=== PATIENT | female | born 1960 | race Caucasian/White ===

== ENCOUNTER 2019-10-09 17:33 | Inpatient (IN) | payer MEDICARE, OTHER ==
[~2019-10-09] VITALS: Ht 175.3 cm; Wt 64.0 kg
[2019-10-09 16:30] VITALS: BP 149/93
--- NOTE | 2019-10-09 17:53 | NUR ---
PT IS IN ROOM #1B. DR PERRY EVALUATED THE PT.
[2019-10-09] MEDS ORDERED: ATOR40TA PO (18:05)
[2019-10-09] MEDS ORDERED: VENL225T PO (18:05)
[2019-10-09] MEDS ORDERED: FLUN25SP NS (18:05)
[2019-10-09] MEDS ORDERED: [UNRECOGNIZED DRUG - CODE] PO (18:05)
[2019-10-09] MEDS ORDERED: NAPR-1009 PO (18:05)
[2019-10-09] MEDS ORDERED: CLON1TAB12 PO (18:05)
[2019-10-09] MEDS ORDERED: POTA10CA43 PO (18:05)
[2019-10-09] MEDS ORDERED: TOPI100T38 PO (18:05)
[2019-10-09] MEDS ORDERED: SERT100T12 PO (18:05)
[2019-10-09] MEDS ORDERED: HYDR50TA3 PO (18:05)
--- NOTE | 2019-10-09 18:30 | NUR ---
Gps/Expediter Service Order- Received report from ER ,Tim RN. Admitted from ER via wheel chair, upon face to face, patient flat, evasive, when asked if she still wants to hurt self, hesitant to answer , but claimed "no" . . Patient is alert, oriented x3 Claimed she does not have any salesperson florist supplies, stated" i dont have anybody.Oriented to unit settings,
--- NOTE | 2019-10-09 18:32 | NUR ---
REPORT WAS GIVEN TO MHU RN. PT WAS TRANSFERED TO [facility] ROOM #145B.
[2019-10-09] MEDS ORDERED: MAG HYDROX/AL HYDROX/SIMETH 30 ML LIQUID UDC PO PRN (20:45)
[2019-10-09] MEDS: LORAZEPAM 1 MG TABLET PO PRN (21:35)
--- NOTE | 2019-10-09 22:44 | NUR ---
Admission Note: 59 yr old female brought to MHU from ER via wheel chair via staff. Pt admitted on a 5150 for Danger to Self under the care of Dr. Correa and Dr. Blanc. VS stable, no c/o pain. According to the hold, patient is homeless and has been living in her car for the last three months. Patient stated that she does not have a family member or friend to contact. Upon admission pt is A/O X 3 name, place and situation. Staff conducted a physical assessment, patient observed to cooperate with admission process, patient. Patient denied Suicidal ideation at time of admission and was able to contract for safety. Patient Rights handbook and Advisement given to Pt, rights Pt will need unit orientation as well as reinforcement due to confusion. Q 15 minute rounds initiated for safety. Addendum: 10/09/19 at 2257 by TRIPP SPICER RN Admission Note: (cont.) Patient placed on a 5150 for Danger to self after she approached someone and stated she was feeling suicidal and had taken twenty-five klonopin tablets.
[2019-10-09] MEDS: TEMAZEPAM 7.5 MG CAPSULE PO PRN (23:22)
[2019-10-10 02:45] VITALS: BP 132/76
[2019-10-10 07:30] VITALS: BP 125/83
[2019-10-10] MEDS: LORAZEPAM 1 MG TABLET PO PRN ×3 (08:47→21:22)
[2019-10-10] MEDS: ACETAMINOPHEN 325 MG TABLET PO PRN (08:47)
[2019-10-10] MEDS: TOPIRAMATE 100 MG TABLET PO SCH ×4 (09:27→20:33)
[2019-10-10] MEDS: POTASSIUM CHLORIDE 10 MEQ TAB.PRT.SR PO SCH ×2 (09:27→17:07)
[2019-10-10] MEDS: HYDROCHLOROTHIAZIDE 25 MG TABLET PO SCH (09:28)
--- NOTE | 2019-10-10 10:27 | NUR ---
Social Work Family Contact: Patient does not have any family members at the moment.
--- NOTE | 2019-10-10 10:27 | NUR ---
Social Work Initial Discharge Plan: Patient is currently homeless and does not have any supportive contact. Per patient, she would want this insurance underwriter sales to find her a SNF. This insurance underwriter sales will work with the MD and treatment team to coordinate proper discharge plan for patient.
--- NOTE | 2019-10-10 10:30 | NUR ---
Social Work Firearms Report: Outside Plant Technician completed and submitted a [employer] firearms report for 5150 grave disability certification. A copy of report has been placed in patient chart.
[2019-10-10] MEDS: NAPROXEN 500 MG TABLET PO PRN (12:47)
[2019-10-10 14:01] LABS: BASOPHILS # (AUTO) 0.1 K/uL (0.0-8.0); BASOPHILS % (AUTO) 1.1 % (0.0-2.0); EOSINOPHILS # (AUTO) 0.2 K/uL (0.0-0.7); EOSINOPHILS % (AUTO) 2.6 % (0.0-7.0); HEMOGLOBIN 12.5 g/dL (10.9-14.3); LYMPHOCYTES # (AUTO) 1.2 K/uL (20.0-40.0); LYMPHOCYTES % (AUTO) 19.9 % (20.5-51.5); MEAN CORPUSCULAR HEMOGLOBIN 29.1 uug (24.7-32.8); MEAN CORPUSCULAR HGB CONC 32 g/dL (32.3-35.6); MEAN CORPUSCULAR VOLUME 90.9 fL (75.5-95.3); MONOCYTES # (AUTO) 0.4 K/uL (2.0-10.0); MONOCYTES % (AUTO) 5.9 % (0.0-11.0); NEUTROPHILS # (AUTO) 4.4 K/uL (1.8-8.9); NEUTROPHILS % (AUTO) 70.5 % (38.5-71.5); PLATELET COUNT (AUTO) 218 K/uL (179-408); RED BLOOD CELL COUNT(AUTO) 4.29 MIL/uL (3.63-4.92); WHITE BLOOD COUNT (AUTO) 6.3 K/uL (3.8-11.8)
[2019-10-10 14:26] LABS: THYROID STIMULATING HORMONE 1.144 mIU/mL (0.358-3.740)
[2019-10-10 14:50] LABS: MAGNESIUM 2.1 mg/dL (1.8-2.4); PHOSPHOROUS 4.1 mg/dL (2.5-4.9)
[2019-10-10 14:53] LABS: BILIRUBIN,TOTAL 0.2 mg/dL (0.2-1.0); CREATININE 1.4 mg/dL (0.6-1.3); POTASSIUM 3.4 mmol/L (3.5-5.1); TOTAL PROTEIN, SERUM 6.8 g/dL (6.4-8.2)
[2019-10-10 16:00] VITALS: BP 134/86
--- NOTE | 2019-10-10 17:28 | NUR ---
Gps/Citrix Consultant- Noted patient smiling, interacting with her roommate, making needs known to staff. encouraged to attend her group therapy. Adequate relief from her generalized body discomfort.
[2019-10-10 20:00] VITALS: BP 147/83
[2019-10-10] MEDS: ATORVASTATIN 40 MG TABLET PO SCH (20:33)
[2019-10-10] MEDS: TRAZODONE 50 MG TABLET PO SCH (22:00)
[2019-10-11] MEDS: TEMAZEPAM 7.5 MG CAPSULE PO PRN ×3 (01:05→22:11)
[2019-10-11 07:30] VITALS: BP 106/76
[2019-10-11] MEDS: POTASSIUM CHLORIDE 10 MEQ TAB.PRT.SR PO SCH ×2 (08:37→16:25)
[2019-10-11] MEDS: HYDROCHLOROTHIAZIDE 25 MG TABLET PO SCH (08:38)
[2019-10-11] MEDS: TOPIRAMATE 100 MG TABLET PO SCH ×4 (08:38→20:58)
[2019-10-11] MEDS: LORAZEPAM 1 MG TABLET PO PRN ×2 (08:50→13:15)
[2019-10-11] MEDS: NAPROXEN 500 MG TABLET PO PRN (13:16)
[2019-10-11] MEDS: VENLAFAXINE XR 75 MG TAB.ER.24H PO SCH (14:07)
[2019-10-11 16:00] VITALS: BP 116/70
[2019-10-11] MEDS: NICOTINE 21 MG/24HR PATCH TD SCH (16:25)
[2019-10-11] MEDS: TRAZODONE 50 MG TABLET PO SCH (20:58)
[2019-10-11] MEDS: ATORVASTATIN 40 MG TABLET PO SCH (20:58)
[2019-10-11] MEDS ORDERED: TRAZODONE 100 MG TABLET PO SCH (21:00)
[2019-10-11 21:40] VITALS: BP 118/68
--- NOTE | 2019-10-12 03:04 | NUR ---
RECEIVED PATIENT IN BED. ADMITTED TO BEING DEPRESSED BUT SAID "AM NOT GOING TO DO ANYTHING TO MYSELF" CONTRACTED FOR SAFETY. COOPERATIVE WITH STAFF FOR HER CARE AND MEDICATIONS.VISUAL CHECKS MADE ON HER FOR SAFETY.WILL CONTINUE TO MONITOR.
--- NOTE | 2019-10-12 06:49 | NUR ---
SLEPT FOR 8HOURS.
[2019-10-12 07:30] VITALS: BP 116/70
[2019-10-12] MEDS: POTASSIUM CHLORIDE 10 MEQ TAB.PRT.SR PO SCH ×2 (08:24→17:03)
[2019-10-12] MEDS: VENLAFAXINE XR 75 MG TAB.ER.24H PO SCH (08:24)
[2019-10-12] MEDS: TOPIRAMATE 100 MG TABLET PO SCH ×4 (08:25→20:17)
[2019-10-12] MEDS: NICOTINE 21 MG/24HR PATCH TD SCH (08:25)
[2019-10-12] MEDS: HYDROCHLOROTHIAZIDE 25 MG TABLET PO SCH (08:26)
[2019-10-12] MEDS: LORAZEPAM 1 MG TABLET PO PRN ×2 (09:04→18:13)
--- NOTE | 2019-10-12 13:45 | NUR ---
Gps?rug designer- Patient requesting to be DNR , informed needed to talk to Medical Doctor ,also neded to talk to her Fast Food Fry Cook re- advanced directives discuss her plans, as well as her Psychiatrist, Patient wants to know results of her GFR( was 39 on 10/10/19) patient she does not want to be on dialysis.
[2019-10-12 16:00] VITALS: BP 113/76
[2019-10-12 20:00] VITALS: BP 141/84
[2019-10-12] MEDS: ATORVASTATIN 40 MG TABLET PO SCH (20:17)
[2019-10-12] MEDS: TRAZODONE 50 MG TABLET PO SCH (20:17)
[2019-10-12] MEDS ORDERED: NICOTINE 21 MG/24HR PATCH TD SCH (20:30)
[2019-10-12] MEDS: NAPROXEN 500 MG TABLET PO PRN (21:09)
[2019-10-12] MEDS: TEMAZEPAM 7.5 MG CAPSULE PO PRN (21:52)
--- NOTE | 2019-10-13 02:19 | NUR ---
RECEIVED PATIENT IN BED.LATER WOKE UP CRYING AND SAYING "THERE ARE SO MANY THINGS HAPPENING IN MY HEAD.AM DEALING WITH SOME CHILDHOOD TRAUMATIC EVENTS AND NEED SOME PSYCHOLOGICAL COUNSELLING".NO OFFENSE BUT WHAT YOU GUYS ARE DOING HERE WILL NOT CUT IT.SPENT SOME TIME WITH HER AND TOLD HER LIFE WAS WORTH LIVING.SHE AGREED AND CONTRACTED FOR SAFETY. COOPERATIVE WITH STAFF FOR HER CARE AND MEDICATIONS.VISUAL CHECKS MADE ON HER FOR SAFETY.WILL CONTINUE TO MONITOR.
--- NOTE | 2019-10-13 06:38 | NUR ---
SLEPT FOR 7 HOURS. SAID SHE FEELS MUCH BETTER.
[2019-10-13 07:30] VITALS: BP 113/65
--- NOTE | 2019-10-13 07:30 | NUR ---
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
[2019-10-13] MEDS: VENLAFAXINE XR 75 MG TAB.ER.24H PO SCH (08:22)
[2019-10-13] MEDS: TOPIRAMATE 100 MG TABLET PO SCH ×4 (08:22→20:46)
[2019-10-13] MEDS: POTASSIUM CHLORIDE 10 MEQ TAB.PRT.SR PO SCH ×2 (08:22→16:13)
[2019-10-13] MEDS: NICOTINE 21 MG/24HR PATCH TD SCH (08:23)
[2019-10-13] MEDS: LORAZEPAM 1 MG TABLET PO PRN ×2 (09:00→15:32)
[2019-10-13] MEDS: HYDROCHLOROTHIAZIDE 25 MG TABLET PO SCH (09:21)
[2019-10-13 16:00] VITALS: BP 130/81
[2019-10-13] MEDS: TRAZODONE 50 MG TABLET PO SCH (20:47)
[2019-10-13 20:48] VITALS: BP 136/88
[2019-10-13] MEDS: ATORVASTATIN 40 MG TABLET PO SCH (20:48)
[2019-10-13] MEDS: TEMAZEPAM 7.5 MG CAPSULE PO PRN (21:13)
--- NOTE | 2019-10-14 03:40 | NUR ---
RECEIVED PATIENT IN BED. ADMITTED TO TO BEING MILDLY DEPRESSED BUT SAID "AM GETTING BETTER EACH DAY".SHE CONTRACTED FOR SAFETY. COOPERATIVE WITH STAFF FOR HER CARE AND MEDICATIONS.VISUAL CHECKS MADE ON HER FOR SAFETY.WILL CONTINUE TO MONITOR.
--- NOTE | 2019-10-14 06:56 | NUR ---
SLEPT FOR 3HOURS. PACING UP AND DOWN THE HALLWAY EARLY THIS MORNING.
[2019-10-14] MEDS: LORAZEPAM 1 MG TABLET PO PRN ×2 (07:15→12:31)
[2019-10-14 07:30] VITALS: BP 124/55
[2019-10-14 07:48] LABS: BASOPHILS # (AUTO) 0.1 K/uL (0.0-8.0); BASOPHILS % (AUTO) 0.9 % (0.0-2.0); EOSINOPHILS # (AUTO) 0.2 K/uL (0.0-0.7); EOSINOPHILS % (AUTO) 2.8 % (0.0-7.0); HEMATOCRIT 42.9 % (31.2-41.9); LYMPHOCYTES # (AUTO) 1.7 K/uL (20.0-40.0); LYMPHOCYTES % (AUTO) 24.3 % (20.5-51.5); MEAN CORPUSCULAR HGB CONC 33 g/dL (32.3-35.6); MEAN CORPUSCULAR VOLUME 89.3 fL (75.5-95.3); MONOCYTES # (AUTO) 0.5 K/uL (2.0-10.0); NEUTROPHILS # (AUTO) 4.6 K/uL (1.8-8.9); PLATELET COUNT (AUTO) 261 K/uL (179-408); RED BLOOD CELL COUNT(AUTO) 4.81 MIL/uL (3.63-4.92); WHITE BLOOD COUNT (AUTO) 7.1 K/uL (3.8-11.8)
[2019-10-14] MEDS: VENLAFAXINE XR 75 MG TAB.ER.24H PO SCH (08:01)
[2019-10-14] MEDS: TOPIRAMATE 100 MG TABLET PO SCH ×4 (08:01→20:16)
[2019-10-14 08:10] LABS: BILIRUBIN,TOTAL 0.3 mg/dL (0.2-1.0); CREATININE 1.6 mg/dL (0.6-1.3); PHOSPHOROUS 4.4 mg/dL (2.5-4.9); POTASSIUM 4.4 mmol/L (3.5-5.1)
--- NOTE | 2019-10-14 08:41 | NUR ---
KEV Coordination of Care: SW faxed pt's referral packet for review and possible placement to [facility] ([phone] [phone]) attention to [facility]. Patient is accepted for placement.
[2019-10-14] MEDS: MAGNESIUM HYDROXIDE 30 ML LIQUID UDC PO PRN (08:56)
[2019-10-14] MEDS ORDERED: NICOTINE 14 MG/24HR PATCH TD SCH (09:00)
[2019-10-14] MEDS: HYDROCHLOROTHIAZIDE 25 MG TABLET PO SCH (09:00)
[2019-10-14] MEDS: NAPROXEN 500 MG TABLET PO PRN (12:28)
--- NOTE | 2019-10-14 14:29 | NUR ---
GPS: upon getting report from the previous shift patient start shouting and agitated at the nurse station, asking for snack , patient has blood works to be done, called the labs immediately and prn medication was given, patient calm down after medication given, patient argumentative but after awhile starts to clam ,patient exhibit moods swings,however denies of any SI and HI at this time MD made aware , will continue monitor
[2019-10-14] MEDS ORDERED: NICOTINE 21 MG/24HR PATCH TD ONE (14:45)
[2019-10-14 15:26] VITALS: BP 135/65
--- NOTE | 2019-10-14 18:09 | NUR ---
patient been calm this afternoon, ate 100% of her dinner, patient been cooperative, needy no distres at this time
[2019-10-14 20:07] VITALS: BP 119/62
[2019-10-14] MEDS: TRAZODONE 50 MG TABLET PO SCH (20:15)
[2019-10-14] MEDS: ACETAMINOPHEN 325 MG TABLET PO PRN (20:16)
[2019-10-14] MEDS: ATORVASTATIN 10 MG TABLET PO SCH (20:16)
[2019-10-14] MEDS: TRAZODONE 100 MG TABLET PO SCH (21:14)
[2019-10-14] MEDS: risperiDONE 0.5 MG TABLET PO SCH (21:16)
[2019-10-15] MEDS: LORAZEPAM 1 MG TABLET PO PRN (02:39)
--- NOTE | 2019-10-15 05:59 | NUR ---
GPS: Received pt in bed, a/ox3, depress and gamez with report of pt mood swing during day shift. Pt was noted having crying spells on and off. Pt c/o headache and prn Tylenol 650mg given per request, report effect. Sunny Lopez was making rounds and Trazodone was increased [id number] at night and Risrdial order started. No side effect noted, and pt requested Ativan at 0239. No aggression or excessive behavior. Continue monitor and anticipate needs. Urine sample was ordered and collected.
[2019-10-15 06:45] LABS: *BILIRUBIN,URIN NEGATIVE (NEGATIVE); *BLOOD, URINE NEGATIVE (NEGATIVE); *CLARITY,URINE CLEAR (CLEAR); *COLOR,URINE YELLOW (YELLOW); *KETONES,URINE NEGATIVE (NEGATIVE); *UROBILINOGEN,URINE 0.2 E.U./dl (NORMAL); LEUKOCYTE ESTERASE ,URINE NEGATIVE (NEGATIVE); NITRITE, URINE NEGATIVE (NEGATIVE); PH,URINE 6.5 (5.0-8.0); UGLUCOSE NEGATIVE (NEGATIVE)
[2019-10-15 07:09] LABS: *CREATININE,URINE 22.1 mg/dL (30-125); *URINE TOTAL PROTEIN RANDOM < 6.0 mg/dL (<150/24HR)
[2019-10-15 07:30] VITALS: BP 99/59
[2019-10-15 07:46] LABS: BASOPHILS # (AUTO) 0.1 K/uL (0.0-8.0); EOSINOPHILS # (AUTO) 0.2 K/uL (0.0-0.7); EOSINOPHILS % (AUTO) 3.5 % (0.0-7.0); HEMATOCRIT 34.9 % (31.2-41.9); HEMOGLOBIN 11.6 g/dL (10.9-14.3); LYMPHOCYTES # (AUTO) 1.5 K/uL (20.0-40.0); LYMPHOCYTES % (AUTO) 30.5 % (20.5-51.5); MEAN CORPUSCULAR HEMOGLOBIN 29.4 uug (24.7-32.8); MEAN CORPUSCULAR HGB CONC 33 g/dL (32.3-35.6); MEAN CORPUSCULAR VOLUME 88.4 fL (75.5-95.3); MONOCYTES # (AUTO) 0.4 K/uL (2.0-10.0); MONOCYTES % (AUTO) 7.4 % (0.0-11.0); NEUTROPHILS # (AUTO) 2.9 K/uL (1.8-8.9); NEUTROPHILS % (AUTO) 57.6 % (38.5-71.5); PLATELET COUNT (AUTO) 195 K/uL (179-408); RED BLOOD CELL COUNT(AUTO) 3.95 MIL/uL (3.63-4.92)
[2019-10-15 08:12] LABS: BILIRUBIN,TOTAL 0.4 mg/dL (0.2-1.0); CREATININE 1.5 mg/dL (0.6-1.3); MAGNESIUM 2.2 mg/dL (1.8-2.4); PHOSPHOROUS 3.9 mg/dL (2.5-4.9); TOTAL PROTEIN, SERUM 6.6 g/dL (6.4-8.2)
[2019-10-15] MEDS: VENLAFAXINE XR 75 MG TAB.ER.24H PO SCH (09:41)
[2019-10-15] MEDS: NICOTINE 21 MG/24HR PATCH TD SCH (09:42)
[2019-10-15] MEDS: TOPIRAMATE 100 MG TABLET PO SCH ×4 (09:42→20:29)
[2019-10-15] MEDS: DIVALPROEX 250 MG TABLET.DR PO SCH ×3 (09:42→17:54)
[2019-10-15] MEDS: risperiDONE 0.5 MG TABLET PO SCH ×2 (09:42→20:29)
[2019-10-15] MEDS: ACETAMINOPHEN 325 MG TABLET PO PRN (09:55)
[2019-10-15 16:00] VITALS: BP 103/58
[2019-10-15 20:09] VITALS: BP 108/54
[2019-10-15] MEDS: TRAZODONE 100 MG TABLET PO SCH (20:28)
[2019-10-15] MEDS: ATORVASTATIN 10 MG TABLET PO SCH (20:29)
[2019-10-16 07:30] VITALS: BP 111/61
[2019-10-16] MEDS: VENLAFAXINE XR 75 MG TAB.ER.24H PO SCH (08:39)
[2019-10-16] MEDS: NICOTINE 21 MG/24HR PATCH TD SCH (08:40)
[2019-10-16] MEDS: DIVALPROEX 250 MG TABLET.DR PO SCH ×3 (08:40→17:10)
[2019-10-16] MEDS: risperiDONE 0.5 MG TABLET PO SCH ×2 (08:40→20:07)
[2019-10-16] MEDS: TOPIRAMATE 100 MG TABLET PO SCH ×4 (08:40→20:07)
[2019-10-16 16:00] VITALS: BP 113/59
[2019-10-16] MEDS: LORAZEPAM 1 MG TABLET PO PRN (16:08)
--- NOTE | 2019-10-16 16:24 | NUR ---
Gps/Barn Hand- Patient requesting to talk to Psychiatrist today, informed Dr Correa will be in tonight and he will be in to see her.Encouraged to continue to verbalized her feelings and needs. Per patient she is ready to be discharged, when asked if still feeling depressed, claimed she still is but she'll be just fine. Attended her group therapy, likes to draw and make colors/arts.
[2019-10-16 16:47] LABS: ALPHA-1-GLOBULIN 0.2 g/dL (0.0-0.4); ALPHA-2-GLOBULIN 0.6 g/dL (0.4-1.0); GAMMA GLOBULIN 1.1 g/dL (0.4-1.8); GLOBULIN, TOTAL 2.9 g/dL (2.2-3.9); M-SPIKE Not Observed g/dL (Not Observed)
[2019-10-16 20:00] VITALS: BP 120/62
[2019-10-16] MEDS: ATORVASTATIN 10 MG TABLET PO SCH (20:07)
[2019-10-16] MEDS: TRAZODONE 100 MG TABLET PO SCH (20:07)
[2019-10-17] MEDS: TEMAZEPAM 7.5 MG CAPSULE PO PRN (01:36)
--- NOTE | 2019-10-17 05:52 | NUR ---
Received patient awake alert and oriented x3. Patient is medication compliant and was up during the middle of the night requesting a sleeping pill. No behavioral issues noted. Patient seemed calm and cooperative. Slept 6.45 hours and is asleep at this time. Monitoring for safety and behavior escalation d/t history of being labile. No issues during the night.
[2019-10-17 07:30] VITALS: BP 119/64
[2019-10-17] MEDS: VENLAFAXINE XR 75 MG TAB.ER.24H PO SCH (09:07)
[2019-10-17] MEDS: DIVALPROEX 250 MG TABLET.DR PO SCH ×3 (09:07→18:18)
[2019-10-17] MEDS: NICOTINE 21 MG/24HR PATCH TD SCH (09:07)
[2019-10-17] MEDS: risperiDONE 0.5 MG TABLET PO SCH ×2 (09:07→20:54)
[2019-10-17] MEDS: TOPIRAMATE 100 MG TABLET PO SCH ×4 (09:08→20:54)
[2019-10-17] MEDS: MAGNESIUM HYDROXIDE 30 ML LIQUID UDC PO PRN (11:00)
[2019-10-17] MEDS: LORAZEPAM 1 MG TABLET PO PRN (11:00)
[2019-10-17 16:00] VITALS: BP 97/58
[2019-10-17 20:37] VITALS: BP 113/64
[2019-10-17] MEDS: TRAZODONE 100 MG TABLET PO SCH (20:54)
[2019-10-17] MEDS ORDERED: ATORVASTATIN 10 MG TABLET ONE (21:43)
[2019-10-17] MEDS: ATORVASTATIN 10 MG TABLET PO SCH (22:10)
--- NOTE | 2019-10-17 22:14 | NUR ---
GPS/NSG Patient first observed awake in room, fair appearance, Flat affect as well as low mood were observed however patient chacho suicidal ideation or intent. Patient compliant with HS medication. Continue to monitor to provide a safe environment.
[2019-10-18 07:30] VITALS: BP 101/63
[2019-10-18] MEDS: TOPIRAMATE 100 MG TABLET PO SCH ×4 (08:53→20:16)
[2019-10-18] MEDS: VENLAFAXINE XR 75 MG TAB.ER.24H PO SCH (08:53)
[2019-10-18] MEDS: DIVALPROEX 250 MG TABLET.DR PO SCH ×3 (08:53→17:00)
[2019-10-18] MEDS: NICOTINE 21 MG/24HR PATCH TD SCH (08:53)
[2019-10-18] MEDS: risperiDONE 0.5 MG TABLET PO SCH ×2 (08:54→20:08)
[2019-10-18] MEDS: LORAZEPAM 1 MG TABLET PO PRN ×2 (13:31→20:07)
[2019-10-18 16:00] VITALS: BP 129/69
[2019-10-18] MEDS: TRAZODONE 100 MG TABLET PO SCH (20:08)
[2019-10-18] MEDS: ATORVASTATIN 10 MG TABLET PO SCH (20:08)
[2019-10-18 20:33] VITALS: BP 111/59
[2019-10-19] MEDS: TEMAZEPAM 7.5 MG CAPSULE PO PRN ×2 (01:54→23:51)
--- NOTE | 2019-10-19 06:23 | NUR ---
Received Pt in the hallway complaining about her roommate and arguing with her. Pt was redirected and calmed, emotional support provided. Pt is withdrawn, isolative, and seclusive to her room, only out for needs. Appears depressed, but states she's "feeling fine." Pt awoke anxious and restless at about 0200, Restoril 7.5mg administered with good effect. Denies SI/HI, verbally contracts for safety. Pt is guarded and gives minimal disclosure, appears to be thought blocking. VS stable, denies pain.
[2019-10-19 08:07] VITALS: BP 118/74
[2019-10-19] MEDS: DIVALPROEX 250 MG TABLET.DR PO SCH ×3 (08:38→16:55)
[2019-10-19] MEDS: TOPIRAMATE 100 MG TABLET PO SCH ×4 (08:38→20:20)
[2019-10-19] MEDS: VENLAFAXINE XR 75 MG TAB.ER.24H PO SCH (08:38)
[2019-10-19] MEDS: NICOTINE 21 MG/24HR PATCH TD SCH (08:38)
[2019-10-19] MEDS: risperiDONE 0.5 MG TABLET PO SCH ×2 (08:38→20:20)
[2019-10-19] MEDS: LORAZEPAM 1 MG TABLET PO PRN (14:34)
[2019-10-19 15:40] VITALS: BP 117/68
[2019-10-19 20:08] VITALS: BP 116/70
[2019-10-19] MEDS: TRAZODONE 100 MG TABLET PO SCH (20:19)
[2019-10-19] MEDS: ATORVASTATIN 10 MG TABLET PO SCH (20:20)
[2019-10-20] MEDS: MAGNESIUM HYDROXIDE 30 ML LIQUID UDC PO PRN (06:07)
--- NOTE | 2019-10-20 06:40 | NUR ---
PT SLEPT 7 HOURS. PT IN NO ACUTE DISTRESS.PT COMPLIANT WITH CARE. PT GIVEN SLEEPING MEDICATION PER PT REQUEST.PRESCRIBED MEDICATION GIVEN AND PT TOLERATED IT WELL. PT GIVEN MILK OF MAGNESIA PER PT REQUEST. PT STATING SHE FEEL CONSTIPATED. SAFETY AND COMFORT PROVIDED. ALL NEEDS ARE MET. WILL ENDORSE TO INCOMING NURSE FOR CONTINUITY OF CARE.
[2019-10-20 07:30] VITALS: BP 129/75
[2019-10-20] MEDS: TOPIRAMATE 100 MG TABLET PO SCH ×4 (08:41→20:56)
[2019-10-20] MEDS: risperiDONE 0.5 MG TABLET PO SCH ×2 (08:41→20:55)
[2019-10-20] MEDS: VENLAFAXINE XR 75 MG TAB.ER.24H PO SCH (08:41)
[2019-10-20] MEDS: ACETAMINOPHEN 325 MG TABLET PO PRN (08:41)
[2019-10-20] MEDS: DIVALPROEX 250 MG TABLET.DR PO SCH ×3 (08:41→16:08)
[2019-10-20] MEDS: NICOTINE 21 MG/24HR PATCH TD SCH (08:42)
[2019-10-20] MEDS: LORAZEPAM 1 MG TABLET PO PRN ×2 (13:57→19:30)
[2019-10-20 16:00] VITALS: BP 120/67
[2019-10-20 20:00] VITALS: BP 130/81
[2019-10-20] MEDS: ATORVASTATIN 10 MG TABLET PO SCH (20:55)
[2019-10-20] MEDS: TRAZODONE 100 MG TABLET PO SCH (20:55)
--- NOTE | 2019-10-21 04:23 | NUR ---
RECEIVED PATIENT IN HER ROOM.PLEASANT UPON APPROACH. DENIES SI/HI.COMPLIANT WITH MEDICATIONS AND CARE BUT WORRIED IF THE MEDICATIONS WILL MAKE HER "FAT". EXPLAINED THAT IT WILL NOT. VISUAL CHECKS MADE ON HER. WILL CONTINUE TO MONITOR.
--- NOTE | 2019-10-21 06:57 | NUR ---
SHE SLEPT FOR 6:00 HOURS.
[2019-10-21] MEDS: VENLAFAXINE XR 75 MG TAB.ER.24H PO SCH (08:30)
[2019-10-21] MEDS: DIVALPROEX 250 MG TABLET.DR PO SCH ×3 (08:30→16:51)
[2019-10-21] MEDS: NICOTINE 21 MG/24HR PATCH TD SCH (08:30)
[2019-10-21] MEDS: TOPIRAMATE 100 MG TABLET PO SCH ×4 (08:30→21:17)
[2019-10-21] MEDS: risperiDONE 0.5 MG TABLET PO SCH ×2 (08:30→21:17)
[2019-10-21 08:43] VITALS: BP 108/69
[2019-10-21] MEDS: LORAZEPAM 1 MG TABLET PO PRN ×2 (10:51→20:02)
[2019-10-21] MEDS: MAGNESIUM HYDROXIDE 30 ML LIQUID UDC PO PRN (14:39)
[2019-10-21 15:42] VITALS: BP 117/84
[2019-10-21 20:08] VITALS: BP 130/84
[2019-10-21] MEDS: TRAZODONE 100 MG TABLET PO SCH (21:17)
[2019-10-21] MEDS: ATORVASTATIN 10 MG TABLET PO SCH (21:17)
--- NOTE | 2019-10-22 06:39 | NUR ---
Slept 9.0 hrs. Pt requested ativan last night. She said she takes it for vertigo. Compliant with routine medications.
[2019-10-22 07:30] VITALS: BP 107/62
[2019-10-22] MEDS: DIVALPROEX 250 MG TABLET.DR PO SCH ×3 (08:55→17:29)
[2019-10-22] MEDS: VENLAFAXINE XR 75 MG TAB.ER.24H PO SCH (08:55)
[2019-10-22] MEDS: risperiDONE 0.5 MG TABLET PO SCH ×2 (08:55→21:21)
[2019-10-22] MEDS: TOPIRAMATE 100 MG TABLET PO SCH ×4 (08:55→21:24)
[2019-10-22] MEDS: NICOTINE 21 MG/24HR PATCH TD SCH (08:56)
[2019-10-22] MEDS: LORAZEPAM 1 MG TABLET PO PRN ×2 (14:56→20:30)
[2019-10-22] MEDS: MAGNESIUM HYDROXIDE 30 ML LIQUID UDC PO PRN (14:59)
[2019-10-22 16:00] VITALS: BP 109/61
[2019-10-22 20:02] VITALS: BP 114/61
[2019-10-22] MEDS: TRAZODONE 100 MG TABLET PO SCH (21:21)
[2019-10-22] MEDS: ATORVASTATIN 10 MG TABLET PO SCH (21:21)
--- NOTE | 2019-10-22 23:27 | NUR ---
Received patient in her room. Calm and cooperative. Able to make needs known. No SI. No behavioral issues. Compliant with medications. Safety measures maintained. Continue to monitor.
[2019-10-23] MEDS: LORAZEPAM 1 MG TABLET PO PRN (02:28)
[2019-10-23 07:30] VITALS: BP 102/70
[2019-10-23] MEDS: VENLAFAXINE XR 75 MG TAB.ER.24H PO SCH (08:46)
[2019-10-23] MEDS: risperiDONE 0.5 MG TABLET PO SCH (08:46)
[2019-10-23] MEDS: DIVALPROEX 250 MG TABLET.DR PO SCH ×2 (08:46→12:45)
[2019-10-23] MEDS: NICOTINE 21 MG/24HR PATCH TD SCH (08:47)
[2019-10-23] MEDS: TOPIRAMATE 100 MG TABLET PO SCH ×2 (08:49→12:45)
--- NOTE | 2019-10-23 09:49 | NUR ---
DISCHARGE NOTE: Pt will be discharged at 12:00pm via AM [facility] ([facility]) [address] [address] [place] [address] P: [phone]. Pt has no family to notify. Pts mood is labile with congruent affect. Pt denied visual/auditory hallucinations and denied suicidal/homicidal ideation. Pt is alert and oriented x4 and is appropriately groomed and dressed. Pt will be under the care of Psychiatrist: Dr. Juan Ramon Correa [address] [place] [address] and Internal Control Consultant: Dr. Mccall Address: [address] [place] [id number] . The multidisciplinary exit care form was done, printed, signed, and given to the patient.
--- NOTE | 2019-10-23 11:10 | NUR ---
Gps/Employment Law Attorney- Called [facility] , report given to Nurse Hernandez. Informed draft roller picker time at 1300 via ambulance. .
--- NOTE | 2019-10-23 13:30 | NUR ---
Gps/Field Service Supervisor- Discharged instructions reviewed, all belongings/valuables given back to patient ( i.e. cell Phone with fence installer foreman, meds., credit cars, $ 2.00) . Discharged via ambulance in good spirit with no complaints noted.
== END 2019-10-23 13:35 | DRG 885 ==
LOC: ER 17:37 → GPS 18:01
PROVIDERS: ADMIT Psychiatry & Neurology Psychiatry; ATTEND Internal Medicine
DX: F31.5 Bipolar disorder, current episode depressed, severe, with psychotic features (principal); E43 Unspecified severe protein-calorie malnutrition; N17.0 Acute kidney failure with tubular necrosis; N18.9 Chronic kidney disease, unspecified; R45.851 Suicidal ideations; T42.4X2D Poisoning by benzodiazepines, intentional self-harm, subsequent encounter; Z59.0 Homelessness; E87.6 Hypokalemia; F41.9 Anxiety disorder, unspecified; I12.9 Hypertensive chronic kidney disease with stage 1 through stage 4 chronic kidney disease, or unspecified chronic kidney disease; M19.90 Unspecified osteoarthritis, unspecified site; R62.7 Adult failure to thrive; Z87.891 Personal history of nicotine dependence; F15.10 Other stimulant abuse, uncomplicated; G89.29 Other chronic pain; E88.09 Other disorders of plasma-protein metabolism, not elsewhere classified; M62.50 Muscle wasting and atrophy, not elsewhere classified, unspecified site; Z68.20 Body mass index [BMI] 20.0-20.9, adult; F39 Unspecified mood [affective] disorder; Z91.5 Personal history of self-harm
CPT/HCPCS: 36415; 83735; 83970; 84100; 84155; 84156; 84165; 84300; 84443; 85025; A4663; J3490

== ENCOUNTER 2020-10-17 19:51 | Inpatient (IN) | payer MEDICARE, OTHER ==
[~2020-10-17] VITALS: Ht 175.3 cm; Wt 58.1 kg
[~2020-10-17 19:51] MED LIST: ATOR40TA PO; CLON1TAB12 PO; FLUN25SP NS; HYDR50TA4 PO; NAPR-1009 PO; POTA10CA43 PO; SERT100T12 PO; TOPI100T38 PO; VENL-192 PO
--- NOTE | 2020-10-17 20:12 | NUR ---
Pt BIB PVT ambulance from [facility] for medical clearance, on 5150 for danger to self for overdose on unknown amount of topamax and clonazepam. Admitting psych is Dr. Caruso. Pt admitted to with no plan. Provided pt with 1:1, security currently at bedside for direct observation with pt. Pt denies any pain/discomfort at this time. Clear speech, complete sentenes.
--- NOTE | 2020-10-17 20:15 | NUR ---
Dr. Jaime at bedside, MSE in progress.
[2020-10-17] MEDS ORDERED: ALBU2.5V13 NEB (20:23)
[2020-10-17] MEDS ORDERED: NICO-671 TP (20:23)
[2020-10-17] MEDS ORDERED: ALBUTEROL SULFATE 2.5 MG/ 0.5 ML NEBU NEB PRN (20:45)
--- NOTE | 2020-10-17 21:08 | NUR ---
GAVE REPORT TO EMANI MENDEZ.
--- NOTE | 2020-10-17 21:38 | NUR ---
Pt. admitted to MHU , under care of Dr. Caruso and Tigist Louise. Dx: psychosis, 5150 hold DTS. Belongs List completed Escorted by security to U.
[2020-10-17] MEDS ORDERED: MAGNESIUM HYDROXIDE 30 ML LIQUID UDC PO PRN (22:00)
[2020-10-17] MEDS ORDERED: MAG HYDROX/AL HYDROX/SIMETH 30 ML LIQUID UDC PO PRN (22:00)
[2020-10-17] MEDS: ACETAMINOPHEN 325 MG TABLET PO PRN (22:30)
[2020-10-17] MEDS: TOPIRAMATE 100 MG TABLET PO SCH (22:35)
[2020-10-17] MEDS: ATORVASTATIN 40 MG TABLET PO SCH (22:35)
[2020-10-17 22:47] VITALS: BP 111/46
--- NOTE | 2020-10-17 23:52 | NUR ---
ADMISSION NOTE: 60 YRS. OLD FEMALE WHO WAS TRANSFERRED FROM [facility] [place] AFTER MEDICAL CLEARED TO BE ADMITTED TO U @ [facility].PT WAS SEEN THEN CLEARED BY ER DOCTOR.PT ARRIVED TO THE UNIT BY WHEELCHAIR ACCOMPANIED BY ER STAFF AND A FIXED INCOME PORTFOLIO MANAGER.A/O X3,SL.ANXIOUS AND RESTLESS UPON ARRIVAL.PT STATED,"I DON'T KNOW WHY THEY SENT ME HERE BUT I'M SCARED". LATER ON SHE WAS ABLE TO CALM DOWN.PT IS ON 72 HR HOLD FOR DTS-PT REPORTED TAKING UNKNOWN AMOUNT OF TOPAMAX AND KLONOPIN IN S/A. PT HAS HX.OF SPINAL STENOSIS,METH ABUSE,BIPOLAR,MIGRAINE,PSEUDOSEIZURE AND CKD STAGE 2.SELF CARE ,BRP AND AMBULATORY,HX.OF MULTIPLE FALLS DUE TO DIZZINESS.DENIES SI/HI/A&V H.C/O DEPRESSED,HOPELESS AND HELPLESS BUT DIDN'T WANT TO TALK ABOUT @ THIS TIME.C/O LOWER BACK PAIN,MEDICATED WITH EFF.WILL CONTINUE TO MONITOR VERY CLOSELY FOR SI.
--- NOTE | 2020-10-18 06:46 | NUR ---
PT SLEPT FOR 4.30 HRS.NO C/O MADE.GOOD EFF.OF TYLENOL THAT WAS GIVEN LAST NIGHT. ENC.TO EXPRESS HER FEELING.IN NO ACUTE DISTRESS .WILL CONTINUE TO MONITOR.STAFF TRIED TO CALL MARIAJOSEPT'S SON,NO ONE LASTING MACHINE OPERATOR BED THE PHONE SO STAFF LEFT A MESSAGE ON HIS VOICEMAIL TO CALL BACK.
[2020-10-18 07:44] VITALS: BP 125/63
[2020-10-18] MEDS: NICOTINE 14 MG/24HR PATCH TD SCH (09:00)
[2020-10-18] MEDS: TOPIRAMATE 100 MG TABLET PO SCH ×5 (09:32→23:00)
--- NOTE | 2020-10-18 10:48 | NUR ---
Firearms Report: Weather Forcaster completed and submitted a DOJ firearms report for 5150 danger to self certifications. A copy of report has been placed in patient chart.
--- NOTE | 2020-10-18 11:28 | NUR ---
Brief Substance Abuse Intervention: Patient was provided with a brief substance abuse intervention for overdose and referred to [facility] ([phone]) [facility] ([phone]) [place] [facility] ([phone]) [facility] ([phone]) [facility] ([phone]) [facility] National Helpline ([phone]).
--- NOTE | 2020-10-18 11:56 | NUR ---
KEV Initial Discharge Plan: Patient is currently homeless. Patient requesting SNF placement. Patient has no family or friends for support. KEV will work with the MD and treatment team to coordinate proper discharge plan for patient.
--- NOTE | 2020-10-18 11:58 | NUR ---
Treatment Plan: Patient refused to sign the treatment plan form due to lethargic mood.
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
[2020-10-18] MEDS ORDERED: OLANZAPINE 10 MG VIAL IM ONE (14:00)
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
--- NOTE | 2020-10-18 14:41 | NUR ---
GPS: Nursing Notes: Reassessment of Chemical Restraint: Patient is awake and responding to her name, isolative and withdrawn in her room, believes that staff is passing Methamphetamines to the patients, believes that the staff is raping the next door patient, but patient is calmed, R=18, IM medication was effective, continue to monitor for safety, continue with treatment plan.
--- NOTE | 2020-10-18 15:41 | NUR ---
KEV Family Contact: SW spoke with patient's son Harjinder ([phone]) and discussed treatment and discharge plan. Harjinder states patient is homeless and will need SNF placement. Patient's son lives in [facility].
[2020-10-18 16:46] VITALS: BP 128/72
[2020-10-18 20:05] VITALS: BP 112/64
[2020-10-18] MEDS: risperiDONE 0.5 MG TABLET PO SCH ×2 (21:59→23:00)
[2020-10-18] MEDS: ATORVASTATIN 40 MG TABLET PO SCH ×2 (21:59→23:00)
[2020-10-18] MEDS: DIVALPROEX 250 MG TABLET.DR PO SCH ×2 (21:59→23:00)
--- NOTE | 2020-10-18 22:00 | NUR ---
received to care, asleep, in bed, but arousable, upon approach. bedtime medications were held, for now. will continue to monitor closely.
--- NOTE | 2020-10-18 23:00 | NUR ---
pt was awoken, and took her bedtime medications. she remains pleasant, calm, and cooperative.will continue to monitor closely.
--- NOTE | 2020-10-19 06:36 | NUR ---
slept well, 9.0 hours. appears to be awake. no distress noted.
[2020-10-19 08:00] VITALS: BP 107/58
[2020-10-19] MEDS: risperiDONE 0.5 MG TABLET PO SCH ×2 (08:24→20:15)
[2020-10-19] MEDS: TOPIRAMATE 100 MG TABLET PO SCH ×4 (08:24→20:15)
[2020-10-19] MEDS: DIVALPROEX 250 MG TABLET.DR PO SCH ×2 (08:24→20:15)
[2020-10-19] MEDS: VENLAFAXINE XR 75 MG TAB.ER.24H PO SCH (08:24)
[2020-10-19] MEDS: NICOTINE 14 MG/24HR PATCH TD SCH (08:24)
--- NOTE | 2020-10-19 13:29 | NUR ---
GPS: Nursing Notes: Mood Disturbance: Depression: Patient is awake and responding to her name, isolative, withdrawn in his room, refusing to participate in therapeutic groups, resistant with nursing care, refusing her Topamax at 13:00 hours, gets easily irritable when redirected, depressed mood and anxious affect, believes that the staff was raping the next door patient, suspicious, paranoid behavior, low energy level, unkempt appearance, unable to formulate a viable plan for self care, continue with treatment plan.
--- NOTE | 2020-10-19 14:13 | NUR ---
SW SNF Referral: KEV faxed patient's referral packet to [facility] (Fax: [phone]) attention to [facility] and patient is accepted for placement.
[2020-10-19 16:00] VITALS: BP 96/52
[2020-10-19] MEDS: ATORVASTATIN 40 MG TABLET PO SCH (20:15)
[2020-10-19 20:59] VITALS: BP 96/54
--- NOTE | 2020-10-19 22:00 | NUR ---
received to care, lying in bed, pleasant upon approach. compliant with medications, and staff direction. snack and fluids were given. as of 2200, she appears to be asleep. no distress noted. will continue to monitor closely.
--- NOTE | 2020-10-20 06:44 | NUR ---
slept 7.25 hours total. continues to sleep. no distress noted.
[2020-10-20 07:30] VITALS: BP 105/43
[2020-10-20] MEDS: risperiDONE 0.5 MG TABLET PO SCH ×3 (09:15→20:59)
[2020-10-20] MEDS: DIVALPROEX 250 MG TABLET.DR PO SCH ×2 (10:22→21:00)
[2020-10-20] MEDS: NICOTINE 14 MG/24HR PATCH TD SCH (10:22)
[2020-10-20] MEDS: VENLAFAXINE XR 75 MG TAB.ER.24H PO SCH (10:24)
[2020-10-20] MEDS: TOPIRAMATE 100 MG TABLET PO SCH ×4 (10:24→20:51)
[2020-10-20 16:00] VITALS: BP 97/45
[2020-10-20 19:45] VITALS: BP 99/65
[2020-10-20] MEDS: ACETAMINOPHEN 325 MG TABLET PO PRN (20:51)
[2020-10-20] MEDS: ATORVASTATIN 40 MG TABLET PO SCH (20:51)
[2020-10-20] MEDS: LORAZEPAM 0.5 MG TABLET PO PRN (22:02)
--- NOTE | 2020-10-20 22:30 | NUR ---
received to care, lying in bed, pleasant upon approach. compliant with medications, except for depakote, and risperdal. PRN ativan was given for anxiety, at 2201. she continued to refuse the psychotropic meds, but was encouraged to discuss with the psychiatrist, in the morning. snack and fluids were given. as of 2229, she appears to be asleep. no distress noted. will continue to monitor closely.
[2020-10-21] MEDS: ACETAMINOPHEN 325 MG TABLET PO PRN (06:35)
--- NOTE | 2020-10-21 06:45 | NUR ---
slept 8.25 hours. is now awake, c/o neck pain 10/10. PRN tylenol was given. will continue to monitor closely..
[2020-10-21 07:30] VITALS: BP 134/71
[2020-10-21] MEDS ORDERED: ARIPIPRAZOLE 2 MG TABLET PO SCH (09:30)
[2020-10-21] MEDS: VENLAFAXINE XR 75 MG TAB.ER.24H PO SCH (09:31)
[2020-10-21] MEDS: TOPIRAMATE 100 MG TABLET PO SCH ×4 (09:36→20:13)
[2020-10-21] MEDS: NICOTINE 14 MG/24HR PATCH TD SCH (09:36)
[2020-10-21] MEDS: ARIPIPRAZOLE 5 MG TABLET PO SCH (10:49)
--- NOTE | 2020-10-21 11:02 | NUR ---
SW Coordination: SW spoke with Tristen from [facility] ([phone]) who stated that pt would have to come in for intake.
--- NOTE | 2020-10-21 11:03 | NUR ---
SW Note: SW spoke with pt and offered placement and stated she is accepted at [facility]. Pt did not want this option. Pt expressed that she wants to go to [facility].
--- NOTE | 2020-10-21 11:18 | NUR ---
Court Hearing: Patient's court hearing for 5250 was today and it was upheld for GD and danger to self.
--- NOTE | 2020-10-21 12:04 | NUR ---
GPS: pt alert and verbally responsive. seen by MD today. pt takes the morning medication and cooperative with care.
[2020-10-21] MEDS: IBUPROFEN 600 MG TABLET PO PRN ×2 (12:33→20:13)
--- NOTE | 2020-10-21 15:13 | NUR ---
gps: EX- Guevara called. pt able to talk with Guevara regarding car keys that pt have here in the locker. Guevara planning to visit pt. informed about the visitation hours and protocol when visiting the hospital.
[2020-10-21 16:06] VITALS: BP 107/56
[2020-10-21] MEDS: ENSURE ENLIVE (VAN) 240 ML LIQUID PO SCH (17:55)
[2020-10-21 19:58] VITALS: BP 134/72
[2020-10-21] MEDS: ATORVASTATIN 40 MG TABLET PO SCH (20:13)
[2020-10-21] MEDS: LORAZEPAM 0.5 MG TABLET PO PRN (20:13)
[2020-10-22] MEDS: VENLAFAXINE XR 75 MG TAB.ER.24H PO SCH (08:18)
[2020-10-22] MEDS: ENSURE ENLIVE (VAN) 240 ML LIQUID PO SCH ×2 (08:18→17:28)
[2020-10-22] MEDS: TOPIRAMATE 100 MG TABLET PO SCH ×4 (08:18→20:15)
[2020-10-22] MEDS: ARIPIPRAZOLE 5 MG TABLET PO SCH (08:18)
[2020-10-22] MEDS: NICOTINE 14 MG/24HR PATCH TD SCH (08:18)
[2020-10-22 08:48] VITALS: BP 117/72
[2020-10-22] MEDS: LORAZEPAM 0.5 MG TABLET PO PRN (16:21)
[2020-10-22] MEDS: IBUPROFEN 600 MG TABLET PO PRN (16:24)
[2020-10-22 16:48] VITALS: BP 116/74
[2020-10-22 19:45] VITALS: BP 151/77
[2020-10-22] MEDS: ATORVASTATIN 40 MG TABLET PO SCH (20:15)
[2020-10-22] MEDS: ZOLPIDEM 5 MG TABLET PO PRN (21:46)
--- NOTE | 2020-10-23 06:31 | NUR ---
Patient slept on and off last night a total of 6.15 hours. This news writer was able to have a meaningful conversation with patient. Patient told news writer she was homeless and that makes her feel anxious. The patient denied active SI but still is depressed. Frequent rounding done to ensure safety. The patient has been calm and compliant with medications.
[2020-10-23 07:30] VITALS: BP 113/74
[2020-10-23] MEDS: ARIPIPRAZOLE 5 MG TABLET PO SCH (08:06)
[2020-10-23] MEDS: TOPIRAMATE 100 MG TABLET PO SCH ×4 (08:06→20:15)
[2020-10-23] MEDS: VENLAFAXINE XR 75 MG TAB.ER.24H PO SCH (08:06)
[2020-10-23] MEDS: NICOTINE 14 MG/24HR PATCH TD SCH (08:06)
[2020-10-23] MEDS: ENSURE ENLIVE (VAN) 240 ML LIQUID PO SCH ×2 (08:09→17:33)
[2020-10-23 16:00] VITALS: BP 104/62
[2020-10-23 20:00] VITALS: BP 143/72
[2020-10-23] MEDS: LORAZEPAM 0.5 MG TABLET PO PRN (20:15)
[2020-10-23] MEDS: ATORVASTATIN 40 MG TABLET PO SCH (20:15)
[2020-10-23] MEDS: IBUPROFEN 600 MG TABLET PO PRN (20:55)
--- NOTE | 2020-10-24 05:12 | NUR ---
Patient slept 6.45 hours last night. The patient was able to make a contract for safety with this quality analyst/technical writer at which time she denied SI. Patient continues to be depressed and worried about her living situation. Reassurance provided. Continuing with safety stratiges and active listening.
[2020-10-24 07:30] VITALS: BP 112/63
[2020-10-24] MEDS: TOPIRAMATE 100 MG TABLET PO SCH ×4 (08:06→20:27)
[2020-10-24] MEDS: ARIPIPRAZOLE 5 MG TABLET PO SCH (08:06)
[2020-10-24] MEDS: NICOTINE 14 MG/24HR PATCH TD SCH (08:06)
[2020-10-24] MEDS: VENLAFAXINE XR 75 MG TAB.ER.24H PO SCH (08:06)
[2020-10-24] MEDS: ENSURE ENLIVE (VAN) 240 ML LIQUID PO SCH ×2 (08:23→16:55)
[2020-10-24 16:00] VITALS: BP 114/65
[2020-10-24 20:12] VITALS: BP 116/64
[2020-10-24] MEDS: LORAZEPAM 0.5 MG TABLET PO PRN (20:28)
[2020-10-24] MEDS: IBUPROFEN 600 MG TABLET PO PRN (20:28)
[2020-10-24] MEDS: ATORVASTATIN 40 MG TABLET PO SCH (20:28)
[2020-10-25] MEDS: ZOLPIDEM 5 MG TABLET PO PRN ×2 (01:16→22:54)
[2020-10-25] MEDS: IBUPROFEN 600 MG TABLET PO PRN (04:00)
--- NOTE | 2020-10-25 05:40 | NUR ---
Patient requested PRN medication during the night. Denied SI. Continues to be depressed. Monitoring for safety. Sleep hours were 6.00.
[2020-10-25 07:53] VITALS: BP 114/70
[2020-10-25] MEDS: NICOTINE 14 MG/24HR PATCH TD SCH (08:25)
[2020-10-25] MEDS: ARIPIPRAZOLE 5 MG TABLET PO SCH (08:25)
[2020-10-25] MEDS: VENLAFAXINE XR 75 MG TAB.ER.24H PO SCH (08:25)
[2020-10-25] MEDS: TOPIRAMATE 100 MG TABLET PO SCH ×4 (08:25→20:50)
[2020-10-25] MEDS: ENSURE ENLIVE (VAN) 240 ML LIQUID PO SCH ×2 (08:26→16:39)
--- NOTE | 2020-10-25 14:24 | NUR ---
Pt is on bed awake. Pt appears to be isolative and withdrawn. pt took all medication , refused to attendance and participated in group activity.denies any pain or discomfort at this time.will continue close monitoring.
[2020-10-25 16:42] VITALS: BP 126/72
[2020-10-25 20:00] VITALS: BP 131/76
[2020-10-25] MEDS: ATORVASTATIN 40 MG TABLET PO SCH (20:50)
[2020-10-25] MEDS: LORAZEPAM 0.5 MG TABLET PO PRN (21:50)
--- NOTE | 2020-10-25 22:00 | NUR ---
received to care, lying in bed, alwer, awake, and pleasant upon approach. compliant with medications, and staff direction. snack and fluids were offered, but she did nor want a snack. water pitcher and cup were placed at the bedside. PRN ativan was given at 2150, for anxiety. as of 2200, she remains calm, but awake. no distress noted. will continue to monitor closely.
--- NOTE | 2020-10-25 23:30 | NUR ---
at 2253, she was still awake, so MARGY english, was given, at that time, at her request. as of 2329, she appears to be asleep. no distress noted. will continue to monitor closely.
--- NOTE | 2020-10-26 06:31 | NUR ---
slept 8.25 hours, total. continues to sleep. no distress, noted.
[2020-10-26 07:51] VITALS: BP 111/76
[2020-10-26] MEDS: VENLAFAXINE XR 75 MG TAB.ER.24H PO SCH (08:25)
[2020-10-26] MEDS: TOPIRAMATE 100 MG TABLET PO SCH ×4 (08:25→21:46)
[2020-10-26] MEDS: ARIPIPRAZOLE 5 MG TABLET PO SCH (08:26)
[2020-10-26] MEDS: ENSURE ENLIVE (VAN) 240 ML LIQUID PO SCH ×4 (08:26→17:06)
[2020-10-26] MEDS: NICOTINE 14 MG/24HR PATCH TD SCH (08:27)
--- NOTE | 2020-10-26 09:09 | NUR ---
Transportation: This SW spoke with Dayana ([phone]) and scheduled transportation for 10/28 and stated she will contact this racebook writer to confirm time.
--- NOTE | 2020-10-26 14:33 | NUR ---
received Patient AAO x$ is on bed awake. Pt appears to be isolative and withdrawn. pt took all medication , refused to attendance and participated in group activity.denies any pain or discomfort at this time.will continue close monitoring.
[2020-10-26 16:00] VITALS: BP 98/58
[2020-10-26 20:03] VITALS: BP 116/62
[2020-10-26] MEDS: LORAZEPAM 0.5 MG TABLET PO PRN (20:34)
[2020-10-26] MEDS: ATORVASTATIN 40 MG TABLET PO SCH (20:40)
--- NOTE | 2020-10-26 22:00 | NUR ---
Received to care, isolative, but pleasant upon approach. No interaction with peers, but easily verbalizes her needs, appropriately. Compliant with medications and staff direction. PRN ativan was given at 2033, for anxiety, which was effective, within an hour. As of 2199, she remains awake, with her eyes open, lying in bed. no distress noted. will continue to monitor closely.
[2020-10-26] MEDS: ZOLPIDEM 5 MG TABLET PO PRN (22:46)
--- NOTE | 2020-10-26 22:46 | NUR ---
Remains awake. PRN ambien, given for insomnia.
--- NOTE | 2020-10-26 23:28 | NUR ---
Appears to be asleep. No distress noted. Will continue to monitor closely.
--- NOTE | 2020-10-27 06:00 | NUR ---
slept 6.75 hours, total. continues to sleep. no distress, noted.
[2020-10-27 07:30] VITALS: BP 100/66
[2020-10-27] MEDS: NICOTINE 14 MG/24HR PATCH TD SCH (08:31)
[2020-10-27] MEDS: TOPIRAMATE 100 MG TABLET PO SCH ×4 (08:32→20:34)
[2020-10-27] MEDS: VENLAFAXINE XR 75 MG TAB.ER.24H PO SCH (08:32)
[2020-10-27] MEDS: ARIPIPRAZOLE 5 MG TABLET PO SCH (08:32)
[2020-10-27] MEDS: ENSURE ENLIVE (VAN) 240 ML LIQUID PO SCH ×3 (08:33→16:59)
--- NOTE | 2020-10-27 14:52 | NUR ---
patient is AAO x4,vital sign stable ,remains isolative no interaction with other peers, pleasant upon approach.appears anxious. compliant with staff, in no acute distress.
--- NOTE | 2020-10-27 14:57 | NUR ---
Transportation: This SW spoke with Dayana ([phone]) and stated that pt will be picked up on 10/28 between 12:30-1PM.
[2020-10-27 16:00] VITALS: BP 98/59
[2020-10-27] MEDS: ATORVASTATIN 40 MG TABLET PO SCH (20:34)
[2020-10-27 21:06] VITALS: BP 125/75
[2020-10-27] MEDS: LORAZEPAM 0.5 MG TABLET PO PRN (21:58)
[2020-10-27] MEDS: IBUPROFEN 600 MG TABLET PO PRN (21:59)
[2020-10-28] MEDS: ZOLPIDEM 5 MG TABLET PO PRN (00:26)
--- NOTE | 2020-10-28 06:42 | NUR ---
GPS: Pt.slept for 7.45 last night. Less anxious and more re-directable. Denies SI. No increased agitation noted. Re-assured prn. Will continue to monitor.
[2020-10-28 07:30] VITALS: BP 114/67
[2020-10-28] MEDS: VENLAFAXINE XR 75 MG TAB.ER.24H PO SCH (08:15)
[2020-10-28] MEDS: NICOTINE 14 MG/24HR PATCH TD SCH (08:15)
[2020-10-28] MEDS: TOPIRAMATE 100 MG TABLET PO SCH (08:15)
[2020-10-28] MEDS: ARIPIPRAZOLE 5 MG TABLET PO SCH (08:15)
--- NOTE | 2020-10-28 08:27 | NUR ---
SW Discharge Note: Patient wants to be discharged to [facility] [address] [place] [address]; ([phone]). Patient will be provided transportation through [facility] ([phone]) and spoke with Dayana who arranged transportation at 12:30-1PM. Patients son, Harjinder ([phone]) is made aware and is agreeable with discharge plans.Patient is alert and oriented x3 and is unable to plan for self-care. Patient denies any suicidal or homicidal ideations. Patient is aware and agreeable with discharge plans. Patient was referred for primary doctor at [facility] located at [address] [place] [id number]; ([phone]) walk-in from Sunday-Sunday 8AM-7PM.Patient was given psychiatrist resources: [facility] ([phone]), [facility] ([phone]), and [facility] ([phone]). Patient was provided with a brief substance abuse intervention and referred to [facility] ([phone]) [facility] ([phone]) National Suicide Prevention Lifeline (762-030-0844) [facility] (102-005-5821) [facility] ([phone]) [facility] National Helpline (824-875-5825). Patient signed the homeless waiver upon discharge and a copy was placed in the chart. Homeless resources were provided and include 211 information line for shelters and homeless resources. A copy of all resources given to patient was also placed in the chart.
--- NOTE | 2020-10-28 09:00 | NUR ---
GPS: pt alert and verbally responsive. pt will be discharge today at around 1300 to a long-term. transportation already arranged and pt belongings already checked. pt cooperative with care and all discharged papers discussed and signed. pt takes the medication and tolerated well.
[2020-10-28] MEDS: ENSURE ENLIVE (VAN) 240 ML LIQUID PO SCH (09:14)
--- NOTE | 2020-10-28 12:17 | NUR ---
GPS: pt was discharged from the hospital and picked up by the car going to long-term. pt signed discharged papers and took all valuables and belongings.
--- NOTE | 2020-11-08 14:48 | NUR ---
Social Work Substance Abuse Follow Up Intervention: [employer] was unable to conduct thorough substance abuse intervention follow up due to having three unsuccessful attempts to reach patient.
== END 2020-10-28 12:30 | disposition home or self-care (01) | DRG 885 ==
LOC: ER 19:53 → GPS 21:22
PROVIDERS: ADMIT Psychiatry & Neurology Psychiatry; ATTEND Nurse Practitioner Acute Care
DX: F31.5 Bipolar disorder, current episode depressed, severe, with psychotic features (principal); E44.0 Moderate protein-calorie malnutrition; Z68.1 Body mass index [BMI] 19.9 or less, adult; N18.2 Chronic kidney disease, stage 2 (mild); Z59.0 Homelessness; J45.909 Unspecified asthma, uncomplicated; E78.5 Hyperlipidemia, unspecified; F17.210 Nicotine dependence, cigarettes, uncomplicated; Z88.2 Allergy status to sulfonamides; I12.9 Hypertensive chronic kidney disease with stage 1 through stage 4 chronic kidney disease, or unspecified chronic kidney disease; M48.00 Spinal stenosis, site unspecified; Z91.5 Personal history of self-harm
CPT/HCPCS: 36415; 97161; A4663; J2358; J3490